=== PATIENT | male | born 1970 | race Caucasian/White ===

== ENCOUNTER 2024-02-14 09:00 | Emergency (ER) | payer MEDICAID ==
[~2024-02-14] VITALS: Ht 175.3 cm; Wt 82.3 kg
[2024-02-14 09:14] VITALS: BP 93/67; PULSE 80; RESP 18; O2SAT 93
[2024-02-14 10:16] VITALS: TEMP 97.8
== END 2024-02-14 10:10 ==
LOC: ER 09:00
DX: E78.00 Pure hypercholesterolemia, unspecified (principal); I10 Essential (primary) hypertension; K21.9 Gastro-esophageal reflux disease without esophagitis; E11.9 Type 2 diabetes mellitus without complications; V89.2XXA Person injured in unspecified motor-vehicle accident, traffic, initial encounter; Y93.89 Activity, other specified; Y92.89 Other specified places as the place of occurrence of the external cause; Y99.8 Other external cause status
CPT/HCPCS: 82948; 99283